=== PATIENT | male | born 1995 | race Caucasian/White ===

== ENCOUNTER → 2017-09-10 | Outpatient (CLI) | payer OTHER ==
[~2017-09-10] MED LIST: ALLEGRA ALLERGY60 MG PO; EPIPEN 2-P0.3 MG/0.3 IM; HYDROCODONE-AP1 EAC6 PO; IBUPROFEN 800800 M1 PO; NOHOMEMEDICATIONS; PREDNISONE50 MG PO; PROMS25 WY RECTAL; ZOFRAN ODT4 MG PO
== END ==
LOC: M.ULTRA 09:00
DX: R22.2 Localized swelling, mass and lump, trunk (principal)

== ENCOUNTER → 2018-10-31 | Outpatient (CLI) | payer OTHER | LOC: M.RAD 13:17 | DX: M25.561 Pain in right knee (principal) ==